=== PATIENT | male | born 1950 | race Caucasian/White ===

== ENCOUNTER 2020-02-16 04:41 | Inpatient (IN) | payer OTHER ==
[~2020-02-16] VITALS: Ht 170.2 cm; Wt 105.5 kg
[~2020-02-16 04:41] MED LIST: ACETAMINOPHEN325 M1 PO; ASPIR 8181 MG PO; ASPIRIN EC325 M1 PO; BYSTOLIC 5 MG5 M1; CARVEDILOL25 MG; CELEXA20 MG; CINNAMON PLUS1 EACH PO; COLACE 100 MG100 MG PO; COZAAR100 MG PO; DAILY MULTIPLE1 EACH PO; GABAPENTIN100 MG PO; GLIPIZIDE XL5 MG PO; GLUCOPHAGE1000 MG PO; LIPITOR40 MG PO; NORVASC10 MG; OMEPRAZOLE20 M2; ROBAXIN 750 MG750 M1 PO; SLEEP AID25 MG PO; TRAMADOL 50 MG50 MG PO
[2020-02-16 04:43] VITALS: BP 192/91
[2020-02-16] MEDS ORDERED: CARVEDILOL12.5 MG PO (05:01)
[2020-02-16] MEDS ORDERED: GABAPENTIN800 M1 PO (05:02)
[2020-02-16] MEDS ORDERED: LEXAPRO20 MG PO (05:02)
[2020-02-16] MEDS ORDERED: VICTOZA0.6 MG/0.1 INJECTION (05:03)
[2020-02-16] MEDS ORDERED: B12 ACTIVE1000 MCG PO (05:03)
[2020-02-16] MEDS ORDERED: PROTONIX 20 MG20 MG PO (05:03)
[2020-02-16 05:23] LABS: HEMATOCRIT 39.8 % (42.0-52.0); HEMOGLOBIN 13.3 gm/dL (14.0-18.0); MCH 29.1 pg (26.0-34.0); MCHC 33.4 g/dL (28.0-37.0); MCV 87.2 fL (80.0-100.0); MPV 8.4 fl. (7.2-11.1); NUCLEATED RBCS 0 /100WBC; PLATELET COUNT* 240 thou/uL (150-400); RBC 4.56 mil/uL (4.50-6.00); WBC 13.1 thou/uL (4.0-11.0)
[2020-02-16 05:41] LABS: APTT 24.7 Seconds (25.0-31.3); INR 1.1; PROTIME 11.4 Seconds (9.20-11.50)
[2020-02-16 05:42] LABS: CALCIUM 8.8 mg/dL (8.5-10.1); CREATININE 1.5 mg/dL (0.6-1.3); POTASSIUM 4.9 mmol/L (3.5-5.1)
[2020-02-16 05:47] LABS: ALBUMIN 3.8 g/dL (3.4-5.0); MAGNESIUM 1.4 mg/dL (1.8-2.4); TOTAL BILIRUBIN 0.6 mg/dL (<0.1-1.0); TOTAL PROTEIN 8.2 g/dL (6.4-8.2)
--- NOTE | 2020-02-16 06:00 | NUR ---
PRE HOSPITAL NITROGLYERIN PATCH REMOVED PER DR MATTHEWS "O"
[2020-02-16 06:04] LABS: BE 0.2 mmol/L (-2 to +3); PCO2 38.6 mmHg (35.0-45.0); PO2 77.3 mmHg (75.0-100.0)
[2020-02-16 06:10] LABS: ABSOLUTE LYMPHOCYTES 0.5 thou/uL (0.8-5.3); ABSOLUTE MONOCYTES 0.7 thou/uL (0.0-1.2); ABSOLUTE NEUTROPHILS 11.9 thou/uL (1.6-8.1); ANISOCYTOSIS 1+; PLATELET ESTIMATE ADEQUATE; POIKILOCYTOSIS 1+
[2020-02-16 09:39] VITALS: BP 136/52; BP 149/83
[2020-02-16] MEDS ORDERED: FLOMAX0.4 MG PO (10:37)
--- NOTE | 2020-02-16 11:04 | NUR ---
RECEIVIED REPORT FROM MICHAEL SOTELO IN ER OF EXPETED ADMISSION AT 0845- DX: RESPIRATORY FAILURE; PLEAURAL EFF; PULMONARY INFILTRATES- PT ARRIVED TO ROOM 221 VIA CART AT 0922, ASSIST X3 VIA SLIDE TO BED- FINISHING MACHINE OPERATOR AUTOMATIC PLACED ORDERED, TRACING SR- VS- 99.1 18 149/83 75 100% ON 4L VIA NC- PT A&O X4, FORGETFULL- CONT VS INCONT OF BOWEL AND BLADDER- DIMINISHED LUNG SOUNDS NOTED, RESP EVEN AND UN-LABORED- ABD SOFT/OBESE/NON-TENDER, BS X4 QUADS- PT REPORTS LAST BM 02/15/20- IV NOTED TO LEFT FA INTACT, IVF INFUSSING PRESCRIBED- RIGHT PANNUS FOLD NOTED WITH SMALL RED RASH AND RIGHT ELBOW WITH REDENED RASH/BRUISE- TRACE EDEMA NOTED TO BLE- Q [address] INDICATED- STAT COVID TEST NOTED TO BE NEGATIVE; PT REMAINS IN INHANCED ISOLATION INDICATED WITH PENDING 2ND COVID TEST- PT DENIES ANY C/O PAIN/DISCOMFORT AT THIS TIME- CALL LIGHT AND PERSONAL BELONGINGS WITH IN REACH- BED ALARM IN PLACE AND WORKING FOR PT SAFETY- HOURLY ROUNDS IN PLACE R/T SAFETY/NEEDS- ALL NEEDS MET AT THIS TIME-TM
[2020-02-16 12:41] VITALS: BP 132/60
--- NOTE | 2020-02-16 15:08 | EKG ---
[place] [address] ELECTROCARDIOGRAM REPORT Name: JACQUELIN HERNANDEZ Room: [address] IN .R.#: [id number] Admission: 02/16/20 Attend Phys: Gerson Gabriel, Discharge: Date of : 52 Date of Service: 02/16/20 0451 Report #: [id number] THIS REPORT FOR: //name// [facility] ED Test Date: 2020-02-16 Test Time: 04:51:52 Pat Name: JACQUELIN HERNANDEZ Department: Room: [facility] Gender: M Cad Design Engineer: CONCEPCIÓN : 1950 Requested By: Lilia Esparza Order Number: [id number] MD: Cesar Loya Measurements Intervals [place] Rate: 97 P: 32 RI: 49 QRS: -23 QRSD: 82 T: 127 QT: 321 QTc: 408 Interpretive Statements Sinus rhythm Atrial premature complex First-degree AV block Inferior infarct, old possible No previous ECG available for comparison Electronically Signed On 02-16-2020 15:08:31 CDT by Cesar Loya [email or web address] <ELECTRONICALLY SIGNED> By: Cesar Loya MD, [facility] 02/16/20 1508 0451 0451 Cesar Loya MD, [facility] /EPI
--- NOTE | 2020-02-16 16:38 | NUR ---
ACACIA was informed that pt would need to transfer to [place] (according to [facility]) once pt was stable to transfer. ACACIA spoke with pt who was in agreement with this plan. ACACIA informed Dr Gabriel and spoke with pt nurse Lawanda. ACACIA faxed requested records to [place] transfer team and they are to call unit number if pt accepted for transfer. [facility] # [phone] fax [phone]
[2020-02-16 20:19] VITALS: BP 150/60
--- NOTE | 2020-02-16 21:41 | CON ---
[address] [address] CONSULTATION Name: JACQUELIN HERNANDEZ Room: [address] IN M.R.#: [id number] Admission: 02/16/20 Attend Phys: Gerson Gabriel MD Discharge: Date of : 52 Report #: [id number] THIS REPORT FOR: //name// cc: YULISSA Goddard family physician/PCP YULISSA Goddard family physician/PCP ~ THIS REPORT FOR: //name// CC: Gerson DUENAS physician/PCP DATE OF SERVICE: 02/16/2020 CONSULT REQUESTED BY: Gerson Gabriel MD INDICATION FOR CONSULTATION: Mass-like infiltrate. HISTORY OF PRESENT ILLNESS: The patient is a 69-year-old gentleman. He has a remote history of smoking, discontinued smoking in the 1970s. He has previously had what he describes as pneumonia with a pleural effusion. He says he had thoracentesis performed in the past. He is not certain which side, thinks most likely it is the left side. The patient does have a history of coronary artery disease with a CABG as well and has a history of dysphagia. At this time, the patient says that he came to the hospital because he was having increase in shortness of breath for the last several days. He was particularly short of breath on the day of admission, which is overnight. He has had a cough. There is not much sputum production. The patient is denying any chest pain; however, according to the records, he has had chest pain with respiration and coughing reported earlier, for which Cardiology service has also been consulted. He does not have increase in swelling of lower extremities. There is no calf pain. The patient does have a low-grade fever at 37.3. The patient initially did require a BiPAP. He has now been titrated down to 4 liters oxygen via nasal cannula. He says that he does not use oxygen or CPAP at home. He has had some sleep complaints, which are longstanding. REVIEW OF SYSTEMS: I asked him 12 questions for review of systems: The patient answers in the negative except as mentioned above. PAST MEDICAL HISTORY: Pneumonia with pleural effusion, for which thoracentesis was performed. It appears likely to me that this is on the left side. However, the patient does not recall. Coronary artery disease, status post coronary artery bypass graft. I do not have a measure of his left ventricular ejection fraction available. Stroke with right sided weakness, Hydrocephalus with a CHIEF KNOWLEDGE OFFICER shunt, bilateral knee surgery, right shoulder surgery, dysphagia, diabetes. His baseline creatinine [place] [address] CONSULTATION Name: JACQUELIN HERNANDEZ Osbaldo Room: [address] IN [facility].#: [id number] Admission: 02/16/20 Attend Phys: Gerson Gabriel MD Discharge: Date of : 52 Report #: [id number] SOCIAL HISTORY: He says he was a smoker when he was younger and discontinued in the 1970s. No known history of heavy alcohol use or illegal drug use. CURRENT MEDICATIONS: List in [facility] reviewed. HOME MEDICATIONS: Also in [facility], reviewed. Noted the patient does take Lexapro at home. ALLERGIES: PENICILLIN, PINEAPPLE AND CHEESE. Details of his reaction to PENICILLIN are Not known to me. FAMILY HISTORY: There is no pertinent family history. PHYSICAL EXAMINATION: GENERAL: Alert, awake and oriented; however, is providing only a limited history. VITAL SIGNS: Blood pressure 132/60. He is saturating in the high 90s and is on 4 liters oxygen via nasal cannula, respiratory rate is mildly elevated to 21, heart rate is 88. He has a low-grade temperature at 37.3. HEENT: Head is normocephalic. NECK: Does not show raised JVP. CHEST: Breath sounds bilaterally equal diminished. No added sounds. HEART: Regular, no murmur. ABDOMEN: Soft and nontender. EXTREMITIES: Lower extremities show trace edema. There is no calf tenderness. SKIN: Dry and intact. NEUROLOGICAL: Moves all extremities bilaterally equally and spontaneously with no focal deficit identified. LABORATORY DATA: The patient's CTA chest is reviewed. In summary, there is no pulmonary emboli. There is a large area of infiltrate, which has a mass-like infiltrate on the right side. There is pleural thickening or loculated pleural effusion on the left side, more likely it is pleural thickening. There is no definite increase in pulmonary vascular congestion. The patient's lab work including a CBC as well as chemistries are in [facility]. These are reviewed. The patient's creatinine is noted to be 1.5. I do not have a previous creatinine available for comparison. His magnesium is 1.4. The patient's arterial blood gas shows a normal pCO2 of 38.6. His COVID-19 antigen is negative, but the PCR is pending. His D-dimer was elevated at 1.12. ASSESSMENT AND PLAN: 1. Acute respiratory insufficiency/shortness of breath. The patient has a large area of infiltrate in the right lung. Therefore, it appears that he has pneumonia. This is the likely etiology of his acute respiratory insufficiency. 2. Mass-like large right-sided pulmonary infiltrates/[place] [address] CONSULTATION Name: JACQUELIN HERNNADEZ Room: [address]#: [id number] Admission: 02/16/20 Attend Phys: Gerson Gabriel MD Discharge: Date of : 52 Report #: [id number] Levaquin. For now, I broadened antibiotic coverage by adding linezolid considering elevation in creatinine and the fact that we do not know his previous creatinine. I would like to avoid use of vancomycin if possible. Note that the patient takes a serotonin specific reuptake inhibitor at home. Recommend not restarting it until the patient is off Zyvox. More cultures and serologies are ordered. Certainly an underlying malignancy will be possible; however, at this time, it appears more likely that we are dealing with an infection. This does need to be followed radiologically. I will plan to follow with chest x-rays will also plan to do a repeat CT chest in the next month. Evaluation for a malignancy may be indicated in case this fails to resolve with the use of antibiotics. I will also go ahead and give him one dose of Solu-Medrol. We will reassess tomorrow as to whether additional steroids are indicated. Overall, COVID-19 appears unlikely; however, I agree with keeping him in isolation until the PCR is back. If it is back and negative, then I will start him on nebulized bronchodilators. Meanwhile, started on an albuterol inhaler. 3. Left sided Pleural Scarring / Possible Left Loculated Pleural Effusion There are likely old/chronic findings 4. Past medical history of stroke with right-sided weakness. Does have a history of dysphagia. We will consult speech, aspiration precautions 5. Hypersomnia. Noct pulse ox / sleep study later 6. Renal insufficiency. Acute vs chronic, follow creatinine, received IV dye 7. Deep venous thrombosis prophylaxis. He is already on Lovenox. Thanks for this consultation. <ELECTRONICALLY SIGNED> By: Aamir Mclaughlin MD 02/16/20 2141 1840 2019Aamir Mclaughlin MD /nt
[2020-02-17] VITALS: BP 117/50
[2020-02-17 04:00] VITALS: BP 137/82
[2020-02-17 05:07] LABS: ABSOLUTE LYMPHOCYTES 0.4 thou/uL (0.8-5.3); ABSOLUTE MONOCYTES 0.1 thou/uL (0.0-1.2); ABSOLUTE NEUTROPHILS 8.7 thou/uL (1.6-8.1); BASOPHILS 0.2 %; EOSINOPHILS 0.3 %; HEMATOCRIT 35.3 % (42.0-52.0); LYMPHOCYTES 4.2 %; MCH 29.3 pg (26.0-34.0); MCV 86.2 fL (80.0-100.0); MONOCYTES 1.6 %; MPV 8.4 fl. (7.2-11.1); NUCLEATED RBCS 0 /100WBC; PLATELET COUNT* 197 thou/uL (150-400); POLYS 93.7 %; RBC 4.09 mil/uL (4.50-6.00); WBC 9.3 thou/uL (4.0-11.0)
--- NOTE | 2020-02-17 05:09 | NUR ---
PT IS ABLE TO COMMUNICATE HIS NEEDS TO STAFF WITH MINOR DIFFICULTIES; HE SOMETIMES REQUIRES EXTRA TIME TO ANSWER. HE HAS DENIED THE NEED FOR PAIN MEDICATION UP TO THIS TIME. RIGHT SIDED HEMIPARESIS; UP WITH WC AT HOME. [facility]. ENHANCED PRECAUTIONS MAINTAINED FOR PENDING COVID19 TESTING.
[2020-02-17 05:21] LABS: ALBUMIN 3.3 g/dL (3.4-5.0); CALCIUM 8.7 mg/dL (8.5-10.1); CREATININE 1.5 mg/dL (0.6-1.3); POTASSIUM 4.8 mmol/L (3.5-5.1); TOTAL BILIRUBIN 0.6 mg/dL (<0.1-1.0); TOTAL PROTEIN 7.5 g/dL (6.4-8.2)
[2020-02-17 08:00] VITALS: BP 171/91
--- NOTE | 2020-02-17 11:48 | NUR ---
SW called and spoke with transfer team at [facility], they are willing to accept pt, they want the transfer form/consent to transfer EMTALA form faxed prior to transfer, SW informed pt nurse [place] to have pt sign and then SW to fax and follow up [facility] with [facility] to ensure [facility] aware PCR pending and finalize transfer time. [facility] ph [phone] option 0, ask for transfer team fax [phone]
[2020-02-17] MEDS ORDERED: LINEZOLID600 MG PO (12:46)
[2020-02-17 12:47] VITALS: BP 145/60
[2020-02-17 15:44] VITALS: BP 145/60
--- NOTE | 2020-02-17 18:32 | NUR ---
PT. VSS, AOX4, DENIES PAIN, COVID ISOLATION PRECAUTIONS IN PLACE. [facility]. REPORT CALLED TO MICHAEL RODRIGUEZ AT [facility]. PT TRANSPORTED BY STRETCHER TO AMBULANCE, DISCHARGE SUMMARY SENT IN PACKET. PT IN NO APPARENT DISTRESS, IN STABLE CONDITION.
--- NOTE | 2020-03-20 14:02 | 2DMMODE ---
[place] [address] 2 D/M-MODE ECHOCARDIOGRAM Name: JACQUELIN HERNANDEZ Room: [address] IN [facility]#: [id number] Admission: 02/16/20 Attend Phys: Gerson Gabriel, Discharge: 02/17/20 Date of : 52 Date of Service: 02/17/20 1315 Report #: [id number] THIS REPORT FOR: cc: FAM - No family physician/PCP FAM - No family physician/PCP Edwin Spivey MD [facility] ~ APPROVED REPORT Study performed: 02/17/2020 10:10:39 EXAM: Comprehensive 2D, Doppler, and color-flow Echocardiogram Patient Location: In-Patient Room #: [facility] Status: routine BSA: 2.09 HR: 67 bpm BP: 141/66 mmHg Rhythm: NSR Other Information Study Quality: Good Indications Elevated Troponin 2D Dimensions IVSd: 16.19 (7-11mm) LVOT Diam: 20.05 (18-24mm) LVDd: 39.96 mm PWd: 11.18 (7-11mm) Ascending Ao: 34.99 (22-36mm) LVDs: 25.09 (25-40mm) Aortic Root: 35.05 mm Volumes Left Atrial Volume (Systole) LA ESV Index: 30.40 mL/m2 Aortic Valve AoV Peak Jorden.: 1.52 m/s AO Peak Gr.: 9.19 mmHg LVOT Max P.89 mmHg AO Mean Gr.: 4.71 mmHg LVOT Mean P.22 mmHg LVOT Max V: 0.85 m/s AO V2 VTI: 28.92 cm LVOT Mean V: 0.50 m/s LIZA (VTI): 1.89 cm2 LVOT V1 VTI: 17.28 [place] [address] 2 D/M-MODE ECHOCARDIOGRAM Name: JACQUELIN HERNANDEZ Room: [address]#: [id number] Admission: 02/16/20 Attend Phys: Gerson Gabriel, Discharge: 02/17/20 Date of : 52 Date of Service: 02/17/20 1315 Report #: [id number] Mitral Valve E/A Ratio: 1.79 MV Decel. Time: 181.57 ms MV E Max Jorden.: 1.34 m/s MV PHT: 52.66 ms MVA (PHT): 4.18 cm2 TDI E/Lateral E': 16.75 E/Medial E': 16.75 Medial E' Jorden.: 0.08 m/s Lateral E' Jorden.: 0.08 m/s Pulmonary Valve PV Peak Jorden.: 0.81 m/s PV Peak Gr.: 2.62 mmHg Tricuspid Valve RAP Estimate: 5.00 mmHg TR Peak Gr.: 33.47 mmHg RVSP: 38.00 mmHg PA Pressure: 38.00 mmHg Left Ventricle The left ventricle is normal size. There is normal LV segmental wall motion. Mild concentric left ventricular hypertrophy. Left ventricular systolic function is normal. LVEF is 55-60%. Transmitral Doppler flow pattern suggests restrictive physiology. Right Ventricle The right ventricle is normal size. The right ventricular systolic function is normal. Atria The left atrium size is normal. The right atrium size is normal. Aortic Valve Mild aortic valve sclerosis. No aortic regurgitation is present. There is no aortic valvular stenosis. Mitral Valve The mitral valve is normal in structure. Trace mitral regurgitation. No evidence of mitral valve stenosis. Tricuspid Valve The tricuspid valve is normal in structure. Mild tricuspid regurgitation. Mild pulmonary hypertension. The RVSP is 50 [place] [address] 2 D/M-MODE ECHOCARDIOGRAM Name: JACQUELIN HERNANDEZ Room: [address]#: [id number] Admission: 02/16/20 Attend Phys: Gerson Gabriel, Discharge: 02/17/20 Date of : 52 Date of Service: 02/17/20 1315 Report #: [id number] Pulmonic Valve The pulmonary valve is normal in structure. There is no pulmonic valvular regurgitation. Great Vessels The aortic root is normal in size. IVC is normal in size and collapses >50% with inspiration. Pericardium There is no pericardial effusion. <Conclusion> The left ventricle is normal size. Mild concentric left ventricular hypertrophy. Left ventricular systolic function is normal. LVEF is 55-60%. Transmitral Doppler flow pattern suggests restrictive physiology. Mild aortic valve sclerosis. There is no aortic valvular stenosis. Trace mitral regurgitation. Mild tricuspid regurgitation. Mild pulmonary hypertension. The RVSP is 50 mmHg. IVC is normal in size and collapses >50% with inspiration. <ELECTRONICALLY SIGNED> By: Edwin Spivey MD, FACC 02/17/20 1315 Edwin Spivey MD, FACC /INF
== END 2020-02-17 16:44 | disposition short-term general hospital (02) | DRG 871 ==
LOC: M.ERS 04:41 → M.TBA-ER 06:42 → M.2W 06:42
PROVIDERS: Personal Emergency Response Attendant; ADMIT Internal Medicine; ATTEND Internal Medicine
PROC: 5A09357 Assistance with Respiratory Ventilation, Less than 24 Consecutive Hours, Continuous Positive Airway Pressure (ICD-10-PCS; principal; 2020-02-16)
DX: A41.9 Sepsis, unspecified organism (principal); I21.4 Non-ST elevation (NSTEMI) myocardial infarction; J96.01 Acute respiratory failure with hypoxia; J15.6 Pneumonia due to other Gram-negative bacteria; N17.9 Acute kidney failure, unspecified; I69.351 Hemiplegia and hemiparesis following cerebral infarction affecting right dominant side; R91.8 Other nonspecific abnormal finding of lung field; I25.10 Atherosclerotic heart disease of native coronary artery without angina pectoris; E11.9 Type 2 diabetes mellitus without complications; I10 Essential (primary) hypertension; Z95.1 Presence of aortocoronary bypass graft; Z88.0 Allergy status to penicillin; Z91.018 Allergy to other foods; Z87.891 Personal history of nicotine dependence; Z79.82 Long term (current) use of aspirin; Z79.899 Other long term (current) drug therapy; Z79.84 Long term (current) use of oral hypoglycemic drugs; Z20.818 Contact with and (suspected) exposure to other bacterial communicable diseases

== ENCOUNTER 2020-08-15 10:41 | Emergency (ER) | payer OTHER ==
[~2020-08-15] VITALS: Ht 175.3 cm; Wt 107.5 kg
[~2020-08-15 10:41] MED LIST changes: +B12 ACTIVE1000 MCG PO; +CARVEDILOL12.5 MG PO; +FLOMAX0.4 MG PO; +GABAPENTIN800 M1 PO; +LEXAPRO20 MG PO; +LINEZOLID600 MG PO; +PROTONIX 20 MG20 MG PO; +VICTOZA0.6 MG/0.1 INJECTION
[2020-08-15 10:48] VITALS: BP 159/67
[2020-08-15 11:05] LABS: BE 0.1 mmol/L (-2 to +3); PCO2 45.6 mmHg (35.0-45.0); PO2 93.3 mmHg (75.0-100.0); pH 7.369 (7.340-7.450)
[2020-08-15 11:10] LABS: ABSOLUTE BASOPHILS 0.1 thou/uL (0.0-0.2); ABSOLUTE EOSINOPHILS 0.3 thou/uL (0.0-0.7); ABSOLUTE LYMPHOCYTES 0.6 thou/uL (0.8-5.3); ABSOLUTE MONOCYTES 0.7 thou/uL (0.0-1.2); ABSOLUTE NEUTROPHILS 6.6 thou/uL (1.6-8.1); BASOPHILS 0.7 %; EOSINOPHILS 3.2 %; HEMATOCRIT 35.3 % (42.0-52.0); HEMOGLOBIN 11.5 gm/dL (14.0-18.0); LYMPHOCYTES 6.8 %; MCH 27.8 pg (26.0-34.0); MCHC 32.6 g/dL (28.0-37.0); MCV 85.2 fL (80.0-100.0); MONOCYTES 8.1 %; MPV 8.1 fl. (7.2-11.1); NUCLEATED RBCS 0 /100WBC; PLATELET COUNT* 250 thou/uL (150-400); POLYS 81.2 %; RBC 4.14 mil/uL (4.50-6.00); WBC 8.1 thou/uL (4.0-11.0)
[2020-08-15 11:21] LABS: APTT 27.8 Seconds (25.0-31.3); CALCIUM 8.8 mg/dL (8.5-10.1); CREATININE 1.3 mg/dL (0.6-1.3); INR 1.1; POTASSIUM 4.3 mmol/L (3.5-5.1)
[2020-08-15 11:32] LABS: ALBUMIN 3.5 g/dL (3.4-5.0); TOTAL BILIRUBIN 0.8 mg/dL (<0.1-1.0); TOTAL PROTEIN 7.7 g/dL (6.4-8.2)
--- NOTE | 2020-08-15 12:24 | NUR ---
[facility] CON[facility]CT[facility] RECORDS FOR TRANSFER PER TRANSFER NURSE LINE
[2020-08-15 13:06] LABS: URINE BILIRUBIN NEGATIVE (Negative); URINE BLOOD NEGATIVE (Negative); URINE CLARITY CLEAR; URINE COLOR YELLOW; URINE GLUCOSE-RANDOM NEGATIVE (Negative); URINE KETONES NEGATIVE (Negative); URINE LEUKOCYTES-REFLEX NEGATIVE (Negative); URINE NITRITE-REFLEX NEGATIVE (Negative); URINE PROTEIN NEGATIVE (Negative); URINE UROBILINOGEN 0.2 E.U./dl (0.2-1.0)
--- NOTE | 2020-08-15 14:25 | EKG ---
[place] [address] ELECTROCARDIOGRAM REPORT Name: JACQUELIN HERNANDEZ Room: [facility]#: [id number] Admission: 08/15/20 Attend Phys: Discharge: Date of : 52 Date of Service: 08/15/20 1123 Report #: [id number] THIS REPORT FOR: //name// [facility] ED Test Date: 2020-08-15 Test Time: 11:23:47 Pat Name: JACQUELIN HERNANDEZ Department: Room: [facility] Gender: Bulk Picker: [place] : 1950 Requested By: Jose Luis Dang Order Number: [id number] MD: Javad Snider Measurements Intervals [place] Rate: 64 P: AL: QRS: -17 QRSD: 86 T: 93 QT: 433 QTc: 447 Interpretive Statements sinus rhythm with first degree av block Abnormal R-wave progression, early transition Inferior infarct, old Baseline wander in lead(s) V3 Compared to ECG 02/16/2020 04:51:52 rate has slowed Electronically Signed On 08-15-2020 14:25:00 HEARTH FEEDER by Javad Snider [email or web address] <ELECTRONICALLY SIGNED> By: Javad Snider MD, [facility] 08/15/20 1425 1123 1123 Javad Snider MD, [facility] /EPI
[2020-08-15 14:37] VITALS: BP 139/76
== END 2020-08-15 14:38 | disposition short-term general hospital (02) ==
LOC: M.ERS 10:41 → M.TBA-ER 12:16 → M.ERS 14:38
PROVIDERS: Family Medicine
DX: J96.90 Respiratory failure, unspecified, unspecified whether with hypoxia or hypercapnia (principal); J18.9 Pneumonia, unspecified organism; I50.9 Heart failure, unspecified; E11.9 Type 2 diabetes mellitus without complications; Z95.1 Presence of aortocoronary bypass graft; Z79.899 Other long term (current) drug therapy; Z79.82 Long term (current) use of aspirin; Z88.0 Allergy status to penicillin; Z91.018 Allergy to other foods; Z20.828 Contact with and (suspected) exposure to other viral communicable diseases

== ENCOUNTER 2021-01-27 11:37 | Inpatient (IN) | payer OTHER ==
[~2021-01-27] VITALS: Ht 177.8 cm; Wt 98.4 kg
[2021-01-27 11:38] VITALS: BP 94/46
[2021-01-27] MEDS ORDERED: FUROSEMIDE 40 M40 MG PO (11:48)
[2021-01-27 12:01] LABS: HEMATOCRIT 31.5 % (42.0-52.0); HEMOGLOBIN 10.9 gm/dL (14.0-18.0); MCH 30.7 pg (26.0-34.0); MCHC 34.6 g/dL (28.0-37.0); MCV 88.6 fL (80.0-100.0); MPV 7.6 fl. (7.2-11.1); NUCLEATED RBCS 0 /100WBC; PLATELET COUNT* 252 thou/uL (150-400); RBC 3.56 mil/uL (4.50-6.00); RDW-CV 13.3 % (10.5-14.5); WBC 13.1 thou/uL (4.0-11.0)
[2021-01-27 12:11] LABS: CALCIUM 8.1 mg/dL (8.5-10.1); CREATININE 2.1 mg/dL (0.6-1.3); POTASSIUM 4.6 mmol/L (3.5-5.1)
[2021-01-27 12:23] LABS: ALBUMIN 3.1 g/dL (3.4-5.0); TOTAL BILIRUBIN 1.2 mg/dL (<0.1-1.0); TOTAL PROTEIN 7.1 g/dL (6.4-8.2)
[2021-01-27 12:29] LABS: ABSOLUTE EOSINOPHILS 0.3 thou/uL (0.0-0.7); ABSOLUTE LYMPHOCYTES 0.1 thou/uL (0.8-5.3); ABSOLUTE NEUTROPHILS 11.7 thou/uL (1.6-8.1); PLATELET ESTIMATE ADEQUATE
[2021-01-27 14:41] LABS: URINE BILIRUBIN NEGATIVE (Negative); URINE BLOOD NEGATIVE (Negative); URINE CLARITY CLEAR; URINE COLOR YELLOW; URINE GLUCOSE-RANDOM NEGATIVE (Negative); URINE KETONES NEGATIVE (Negative); URINE LEUKOCYTES-REFLEX NEGATIVE (Negative); URINE NITRITE-REFLEX NEGATIVE (Negative); URINE PROTEIN NEGATIVE (Negative)
[2021-01-27 15:21] VITALS: BP 102/52
--- NOTE | 2021-01-27 19:50 | NUR ---
PT WAS ADMITTED TODAY FOR AK. PT HAS OLD STROKE SYMPTOMS THAT HE IS FLAccid on his right SIDE. VSS AFEBRILE. PT HAS A VERY GOOD MEMORY. PT INCONTINENT OF URINE. WILL NEED TO MONITOR HIS WETNESS SO HE DOES NOT GET SKIN BREAK DOWN. PT HAS SALINE LOCK IN HIS LEFT FOREARM OLEG NORMAL SALINE AT 100CC/HR. WILL CONTINUE TO MONITOR PLAN OF CARE.
[2021-01-27 22:00] VITALS: BP 137/65
--- NOTE | 2021-01-27 23:59 | NUR ---
PT STARTED SHIFT WITH TELE NSR AT APPROX 2200 PT MONITOR WAS SHOWING AFIB SO I PRINTED STRIP, IT APPEARS MORE SINUS ARRYTHMIA THAN AFIB. I CONFERRED WITH ROBERT MELÉNDEZ RN AND SHE AGREED. WCTM
[2021-01-28] VITALS: BP 137/69
[2021-01-28 04:09] VITALS: BP 144/61
--- NOTE | 2021-01-28 05:25 | NUR ---
PT AO X4 LYING IN BED AT TIME OF ASSESMENT. IVF RUNNING AT 100/HR PER ORDER. PT HAS RT SIDE HEMIPARESIS FROM PREVIOUS STROKE. PULSES DIMINISHED ON RT SIDE. PT DENIES PAIN AND SOA, HE WAS NSR AT BEGINING OF SHIFT AND LATER WAS READING AFIB ON MONITOR BUT REVIEW OF STRIP SHOWED SINUS ARRYTHMIA. PT HAS HAD LITTLE URINE OUTPUT THIS SHIFT. DARK YELLOW IN COLOR. VSS. CALL LIGHT WITHIN REACH AND BED LIGHT ON FOR SAFETY
--- NOTE | 2021-01-28 07:15 | NUR ---
CHANGE OF SHIFT BEDSIDE REPORT GIVEN PATIENT SEEN AT BEDSIDE, IN BED ASLEEP ASSUMED PATIENT CARE
[2021-01-28 08:00] VITALS: BP 169/72
[2021-01-28 10:27] LABS: CHOLESTEROL 86 mg/dL (<200); HDL CHOLESTEROL 27 mg/dL (>40); LDL CHOLESTEROL 30 mg/dL (<100); SERUM ASSESSMENT Clear; TC:HDL 3.2 Ratio (Not establshd); TRIGLYCERIDE 147 mg/dL (<150); VLDL 29 mg/dL (<40)
--- NOTE | 2021-01-28 11:29 | EKG ---
[place] [address] ELECTROCARDIOGRAM REPORT Name: JACQUELIN HERNANDEZ Room: [address] ADM IN .R.#: [id number] Admission: 01/27/21 Attend Phys: Sky [place] Discharge: Date of : 52 Date of Service: 01/27/21 1149 Report #: [id number] THIS REPORT FOR: //name// [facility] ED Test Date: 2021-01-27 Test Time: 11:49:30 Pat Name: JACQUELIN HERNANDEZ Department: Room: [facility] Gender: M Brass Bobbin Winder: : 1950 Requested By: Nathanael Heath Order Number: [id number] MD: Javad Snider Measurements Intervals [place] Rate: 79 P: -59 IA: 217 QRS: -16 QRSD: 93 T: 64 QT: 379 QTc: 435 Interpretive Statements Sinus rhythm nonspecific st segment changes Borderline left axis deviation RSR' in V1 or V2, right VCD or RVH Compared to ECG 08/15/2020 11:23:47 First degree AV block no longer present Electronically Signed On 01-28-2021 11:28:56 CDT by Javad Snider [email or web address] <ELECTRONICALLY SIGNED> By: Javad Snider MD, FAC 01/28/21 1128 1149 1149 Javad Snider MD, [facility] /EPI
[2021-01-28 13:01] VITALS: BP 153/70
[2021-01-28 15:43] VITALS: BP 154/78
--- NOTE | 2021-01-28 16:00 | NUR ---
notified by PT that patients L foot 5th toe nail has come off during pivot transfer toe assessed, L foot 5th toe without toe nail, small amount of blood, area cleaned with saline, left CAKE STRIPPER patient denies pain will continue to monitor
[2021-01-28 20:00] VITALS: BP 160/78
[2021-01-29] VITALS: BP 122/68
[2021-01-29 03:57] LABS: ALBUMIN 2.8 g/dL (3.4-5.0); CALCIUM 8.3 mg/dL (8.5-10.1); CREATININE 1.3 mg/dL (0.6-1.3); POTASSIUM 3.8 mmol/L (3.5-5.1); TOTAL BILIRUBIN 0.7 mg/dL (<0.1-1.0); TOTAL PROTEIN 6.7 g/dL (6.4-8.2)
[2021-01-29 04:00] VITALS: BP 100/57
[2021-01-29 04:05] LABS: GLYCOHEMOGLOBIN (HGB A1C) 6.4 % (4.8-5.6)
--- NOTE | 2021-01-29 05:47 | NUR ---
PATENT SLEPT WELL DURING THIS SHIFT. PT WITH HS BLOOD SUGAR OF 155; NO SSI ORDERED. PT IS ON ROOM AIR. PT DENIES PAIN/NAUSEA. PT IS SR ON FURNACE HAND. PT WITH FLUIDS INFUSING PER DR ORDER. PT WITH LIMITED USE OF RT SIDE DUE TO PREVIOUS CVA. FREQUENTLY USED ITEMS AND CALL LIGHT WITHIN REACH. SIDERAILS UPX2 AND BED ALARM ON. WILL CONTINUE TO MONITOR.
[2021-01-29 08:05] VITALS: BP 151/82
[2021-01-29] MEDS ORDERED: CEFDINIR300 MG PO (09:09)
[2021-01-29 12:00] VITALS: BP 138/71
[2021-01-29 13:29] VITALS: BP 138/71
--- NOTE | 2021-01-29 13:56 | NUR ---
WOUND NURSE: PATIENT ASSESSED REGARDING TOENAIL CAME OFF OF 5TH DIGIT OF LEFT FOOT. EXPECT THE NAIL WAS ALREADY LOOSE NAIL BED WAS PINK AND INTACT WHILE THE CUTICLE HAD A SCANT AMOUNT OF DRIED BLOOD ALONG THE EDGES. THERE IS NO ACTIVE DRAINAGE. SWABBED WITH BETADINE AND LEFT NOEL TO DRY. NO OTHER INTERVENTION NECESSARY AT THIS TIME.
--- NOTE | 2021-01-29 15:06 | NUR ---
Patient given d/c instructions and new script, verbalized understanding. IV taken out, vehicle monitor technician taken off. is here. He is being taken out by his personal wheelchair with nursing staff to his personal car. All belongings with patient.
--- NOTE | 2021-01-30 13:48 | NUR ---
I have reviewed the documentation by LUIS GORDON from 01/29/21 to 01/30/21 and I concur with it. CARYL DENNY
== END 2021-01-29 15:08 | disposition home or self-care (01) | DRG 177 ==
LOC: M.ERS 11:37 → M.2W 13:06 → M.TBA-ER 13:06 → M.2W 15:21
PROVIDERS: Emergency Medicine Emergency Medical Services; Psychiatry & Neurology Neurology; ADMIT Internal Medicine; ATTEND Internal Medicine
DX: J69.0 Pneumonitis due to inhalation of food and vomit (principal); G93.41 Metabolic encephalopathy; G82.20 Paraplegia, unspecified; E11.9 Type 2 diabetes mellitus without complications; R77.8 Other specified abnormalities of plasma proteins; N19 Unspecified kidney failure; Z20.822 Contact with and (suspected) exposure to COVID-19; Z79.82 Long term (current) use of aspirin; Z95.1 Presence of aortocoronary bypass graft; Z79.84 Long term (current) use of oral hypoglycemic drugs; Z79.899 Other long term (current) drug therapy; Z88.0 Allergy status to penicillin; Z91.018 Allergy to other foods; I69.361 Other paralytic syndrome following cerebral infarction affecting right dominant side; Z87.891 Personal history of nicotine dependence

== ENCOUNTER 2021-06-25 19:26 | Inpatient (IN) | payer OTHER ==
[~2021-06-25] VITALS: Ht 172.7 cm; Wt 90.7 kg
[~2021-06-25 19:26] MED LIST changes: +CEFDINIR300 MG PO; +FUROSEMIDE 40 M40 MG PO
[2021-06-25 19:27] VITALS: BP 158/89
[2021-06-25 19:47] LABS: ABSOLUTE BASOPHILS 0.1 thou/uL (0.0-0.2); ABSOLUTE EOSINOPHILS 0.2 thou/uL (0.0-0.7); ABSOLUTE LYMPHOCYTES 0.7 thou/uL (0.8-5.3); BASOPHILS 0.7 %; EOSINOPHILS 1.5 %; HEMATOCRIT 35.6 % (42.0-52.0); HEMOGLOBIN 11.9 gm/dL (14.0-18.0); LYMPHOCYTES 5.7 %; MCH 29.6 pg (26.0-34.0); MCHC 33.3 g/dL (28.0-37.0); MCV 89.1 fL (80.0-100.0); MONOCYTES 7.9 %; MPV 8.1 fl. (7.2-11.1); NUCLEATED RBCS 0 /100WBC; PLATELET COUNT* 221 thou/uL (150-400); POLYS 84.2 %; RDW-CV 14.5 % (10.5-14.5); WBC 13.1 thou/uL (4.0-11.0)
[2021-06-25 19:55] LABS: CALCIUM 8.7 mg/dL (8.5-10.1); POTASSIUM 5.1 mmol/L (3.5-5.1)
[2021-06-25 19:59] LABS: ALBUMIN 3.4 g/dL (3.4-5.0); TOTAL BILIRUBIN 0.8 mg/dL (<0.1-1.0); TOTAL PROTEIN 7.5 g/dL (6.4-8.2)
[2021-06-25 21:06] LABS: URINE BILIRUBIN NEGATIVE (Negative); URINE BLOOD NEGATIVE (Negative); URINE CLARITY CLEAR; URINE COLOR YELLOW; URINE GLUCOSE-RANDOM NEGATIVE (Negative); URINE KETONES NEGATIVE (Negative); URINE LEUKOCYTES NEGATIVE (Negative); URINE NITRITE NEGATIVE (Negative); URINE PROTEIN NEGATIVE (Negative)
[2021-06-26 01:56] VITALS: BP 138/45
[2021-06-26 04:54] VITALS: BP 134/80
--- NOTE | 2021-06-26 09:50 | OP ---
[address] [address] OPERATIVE REPORT Name: JACQUELIN HERNANDEZ Room: [place] [address] ADM IN .R.#: [id number] Admission: 06/25/21 Attend Phys: Mackenzie Bello Discharge: Date of : 52 Report #: [id number] THIS REPORT FOR: cc: [facility] - Clinic physician unknown [facility] - Clinic physician unknown Moose Bradshaw DO ~ DATE OF SURGERY: 06/26/2021 SURGEON: Moose Bradshaw DO [employer] TENDER: Dr. Bong Correa. PREOPERATIVE DIAGNOSIS: Small bowel perforation. POSTOPERATIVE DIAGNOSIS: Small bowel perforation. PROCEDURE PERFORMED: Exploratory laparotomy with small bowel resection and anastomosis. INDICATIONS: The patient is a 70-year-old male who presented to the hospital with complaints of abdominal pain and fever. History of present illness, physical exam, and CT imaging were consistent with a possible small bowel perforation. Risks, benefits and alternatives were discussed with the patient and his . Risks include bleeding, infection and damage to nearby structures. The patient and his voiced complete understanding and elected to proceed with surgery. OPERATIVE DESCRIPTION: The patient was taken to the operating theater and placed in supine position. Bilateral SCDs were placed and preoperative antibiotics had been given. General anesthesia was induced without complication. Timeout was performed and all were in agreement. The abdomen was prepped and draped in the standard sterile fashion. A midline celiotomy incision was made with a 10 blade scalpel. Dissection was carried down to the midline fascia using electrocautery. Midline fascia was scored. A finger was used to enter the peritoneum and the remainder of the fascial incision was opened for the length of the incision over a finger. The small bowel was eviscerated. The omentum was adhered to a previous appendectomy scar, this was taken down from the abdominal wall using a LigaSure device. The small bowel was run from the ligament of Treitz to the terminal ileum. There was a small area in the jejunum that appeared to have perforated and sealed. The bowel wall was thickened and the mesentery indurated. There were several enlarged lymph nodes and some purulent ascites surrounding. The remainder of the bowel appeared relatively healthy. . There were some mesenteric petechial [place] [address] OPERATIVE REPORT Name: JACQUELIN HERNANDEZ Room: [address] IN [facility]#: [id number] Admission: 06/25/21 Attend Phys: Mackenzie Bello Discharge: Date of : 52 Report #: [id number] throughout, but no major lymphadenopathy. There was 1 diverticulum just proximal to the perforation site. This would be taken with the specimen. Hemostat was used proximal and distal to the area of perforation to create a mesenteric window and a SEBAS stapler blue load was used to transect the bowel in the proximal and distal location. . A LigaSure device was used to ligate the mesentery. This was sent off as specimen. Next, the 2 ends of the small intestine were lined up. A 3-0 silk interrupted stitches were used to create a back wall of the anastomosis. An enterotomy on the antimesenteric border of each limb was made using electrocautery. A 3-0 PDS suture was used in a running fashion to sew the common channel. Two 3-0 PDS were used, they were tied in the middle, run to the corners where a janell stitch was performed and then tied in the middle. 3-0 silk stitches were used to imbricate the front side of this common channel in a lembert fashion. Next, a mesenteric defect was closed using 2-0 Vicryl in a running fashion. The omentum was placed over the small intestine and the abdomen was irrigated with 3 liters of warm saline. The fascia was then closed using two #1 looped PDS sutures. These were tied in the middle. A 3-0 Vicryl deep dermal stitches were placed in an interrupted fashion and the skin was closed with tami. The wound was dressed with a silver Mepilex dressing. The sponge, needle and instrument counts were correct x 2. COMPLICATIONS: None. FINDINGS: Area of small bowel perforation. SPECIMENS: Small bowel. ESTIMATED BLOOD LOSS: 20 mL. DRAINS: None. DISPOSITION: The patient was extubated successfully in the operating theater and taken to the PACU in stable condition. <ELECTRONICALLY SIGNED> By: Moose Bradshaw DO 06/26/21 0950 [id number] Bradshaw DO /nt
--- NOTE | 2021-06-26 09:56 | EKG ---
[place] [address] ELECTROCARDIOGRAM REPORT Name: JCAQUELIN HERNANDEZ Room: [place] [address] ADM IN [facility]#: [id number] Admission: 06/25/21 Attend Phys: Sky [place] Discharge: Date of : 52 Date of Service: 06/25/211933 Report #: [id number] THIS REPORT FOR: //name// [facility] ED Test Date: 2021-06-25 Test Time: 19:34:35 Pat Name: JACQUELIN HERNANDEZ Department: Room: [facility] Gender: M [employer]: : 1950 Requested By: Moose Arce Order Number: [id number] MD: Cesar Loya Measurements Intervals [place] Rate: 77 P: 0 SD: 56 QRS: -5 QRSD: 94 T: 66 QT: 379 QTc: 429 Interpretive Statements Sinus or junctional rhythm Borderline T wave abnormalities Compared to ECG 01/27/2021 11:49:30 T-wave abnormality now present ST (T wave) deviation now present Right ventricular hypertrophy no longer present Electronically Signed On 06-26-2021 9:56:30 PRESS HAND by Cesar Loya [email or web address] <ELECTRONICALLY SIGNED> By: Cesar Loya MD, FACC 06/26/21 0956 33 33 Cesar Loya MD, FACC /EPI
[2021-06-26 16:00] VITALS: BP 123/55
[2021-06-26 19:35] VITALS: BP 104/51
[2021-06-27 00:17] VITALS: BP 109/48
[2021-06-27 04:00] VITALS: BP 100/51
[2021-06-27 05:37] LABS: ABSOLUTE LYMPHOCYTES 0.4 thou/uL (0.8-5.3); ABSOLUTE MONOCYTES 0.8 thou/uL (0.0-1.2); ABSOLUTE NEUTROPHILS 7.1 thou/uL (1.6-8.1); BASOPHILS 0.1 %; EOSINOPHILS 0.1 %; HEMATOCRIT 26.1 % (42.0-52.0); LYMPHOCYTES 5.3 %; MCH 30.5 pg (26.0-34.0); MCHC 33.5 g/dL (28.0-37.0); MCV 90.9 fL (80.0-100.0); MONOCYTES 9.2 %; MPV 8.5 fl. (7.2-11.1); NUCLEATED RBCS 0 /100WBC; PLATELET COUNT* 156 thou/uL (150-400); POLYS 85.3 %; RBC 2.87 mil/uL (4.50-6.00); RDW-CV 14.4 % (10.5-14.5); WBC 8.4 thou/uL (4.0-11.0)
[2021-06-27 05:42] LABS: HEMOGLOBIN 8.8 gm/dL (14.0-18.0)
[2021-06-27 05:51] LABS: ALBUMIN 2.4 g/dL (3.4-5.0); CALCIUM 7.6 mg/dL (8.5-10.1); CREATININE 1.7 mg/dL (0.6-1.3); POTASSIUM 4.5 mmol/L (3.5-5.1); TOTAL BILIRUBIN 0.5 mg/dL (<0.1-1.0); TOTAL PROTEIN 5.9 g/dL (6.4-8.2)
[2021-06-27 08:09] VITALS: BP 99/48
[2021-06-27 11:55] VITALS: BP 114/63
[2021-06-27 16:32] VITALS: BP 117/73
--- NOTE | 2021-06-27 17:06 | PATH ---
[address] [address] PATHOLOGY RPT PROCEDURE Name: GUILLERMO HERNANDEZ Room: [address] ADM IN M.R.#: [id number] Admission: 06/25/21 Date of : 52 Discharge: Report #: [id number] Path Case #: [id number] [facility] Accession Number: [id number] . 01 Material submitted: . small bowel - SMALL BOWEL . 01 Clinical history: . EXPLORATORY LAPAROTOMY SMALL BOWEL PERFORATION . 02 Diagnosis: Small bowel: - Segment of benign small intestine with evidence of diverticuli and with prominent transmural perforation in region of ulceration, fat necrosis, abscess formation and acute serositis. . (KELSIE:mml; 06/27/2021) [facility] 06/27/2021 [facility]2 Local . 02 Electronically signed: . Marky Verdin MD, Pathologist NPI- [id number] . 01 Gross description: . The specimen is received in formalin, labeled "Guillermo Hernandez, small bowel" and consists of an unoriented segment of small bowel (46.7 cm in length by 2.2 cm to 3.5 cm in diameter) with a moderate amount of attached fat. The serosa is wood-pink to focally white, dusky and hemorrhagic and displays a focal area of fibrinous exudate (6.0 x 0.9 cm). The stapled margins are differentially inked black and blue. The specimen is opened to reveal, underlying the area of fibrinous exudate, pink-red edematous and dusky mucosa (approximately 7.5 x 5.0 cm). Numerous wide-mouth outpouchings (ranging from 1.4 x 0.9 x 0.9 cm to 2.8 x 2.5 x 1.0 cm) are identified. A possible perforation site (0.8 x 0.5 x 0.2 cm) is identified and displays an adjacent abscess cavity (2.5 x 1.4 x 0.7 cm). No additional discrete lesions are identified. Brush Cleaner sections are submitted as follows: A1: Staple margins, submitted en face, represented A2-A4: Possible perforation and abscess cavity, represented A5-A6: Outpouchings, represented A7: White serosa, entirely submitted ([facility]; 06/26/2021) DKA/DKA 06/27/2021 1550 Local . 02 Pathologist provided ICD-10: K63.3, K65.8, K63.[address] . [address] [facility] [address] [place] [address] PATHOLOGY RPT PROCEDURE Name: GUILLERMO HERNANDEZ Osbaldo Room: [address] IN [facility]#: [id number] Admission: 06/25/21 Date of : 52 Discharge: Report #: [id number] Path Case #: [id number] Specimen Comment: A courtesy copy of this report has been sent to [phone] Specimen Comment: [id number] Specimen Comment: Report sent to / DR DODGE Performed at: 01 [facility] [place] [id number] [facility] [place] [address], [place], [place] [id number] MD Antwan Tong MD Phone: [phone] Performed at: 02 [facility] [place] [address], [place], [place] [id number] MD Marky Verdin MD Phone: [phone]
[2021-06-27 19:28] VITALS: BP 126/58
[2021-06-28 01:44] VITALS: BP 136/62
[2021-06-28 04:45] LABS: ABSOLUTE EOSINOPHILS 0.4 thou/uL (0.0-0.7); ABSOLUTE LYMPHOCYTES 0.4 thou/uL (0.8-5.3); ABSOLUTE MONOCYTES 0.7 thou/uL (0.0-1.2); ABSOLUTE NEUTROPHILS 6.4 thou/uL (1.6-8.1); BASOPHILS 0.4 %; HEMATOCRIT 25.3 % (42.0-52.0); HEMOGLOBIN 8.5 gm/dL (14.0-18.0); LYMPHOCYTES 5.6 %; MCH 30.4 pg (26.0-34.0); MCHC 33.7 g/dL (28.0-37.0); MONOCYTES 8.5 %; MPV 8.5 fl. (7.2-11.1); NUCLEATED RBCS 0 /100WBC; PLATELET COUNT* 179 thou/uL (150-400); POLYS 80.5 %; RBC 2.81 mil/uL (4.50-6.00); RDW-CV 14.3 % (10.5-14.5); WBC 7.9 thou/uL (4.0-11.0)
[2021-06-28 05:01] LABS: CALCIUM 8.1 mg/dL (8.5-10.1); CREATININE 1.5 mg/dL (0.6-1.3); MAGNESIUM 1.7 mg/dL (1.8-2.4); PHOSPHORUS* 2.4 mg/dL (2.5-4.9); POTASSIUM 4.2 mmol/L (3.5-5.1)
[2021-06-28 05:52] VITALS: BP 151/74
[2021-06-28 12:00] VITALS: BP 175/70
[2021-06-28 16:00] VITALS: BP 160/71
[2021-06-28 20:00] VITALS: BP 153/81
[2021-06-29 01:50] VITALS: BP 108/60
[2021-06-29 02:06] LABS: GLYCOHEMOGLOBIN (HGB A1C) 6.8 % (4.8-5.6)
[2021-06-29 06:34] VITALS: BP 175/77
[2021-06-29 06:34] LABS: HEMATOCRIT 26.6 % (42.0-52.0); HEMOGLOBIN 8.7 gm/dL (14.0-18.0); MCH 29.9 pg (26.0-34.0); MCHC 32.8 g/dL (28.0-37.0); MCV 91.1 fL (80.0-100.0); MPV 8.1 fl. (7.2-11.1); RBC 2.92 mil/uL (4.50-6.00); WBC 7.3 thou/uL (4.0-11.0)
[2021-06-29 06:47] LABS: ALBUMIN 2.2 g/dL (3.4-5.0); CALCIUM 8.2 mg/dL (8.5-10.1); CREATININE 1.3 mg/dL (0.6-1.3); POTASSIUM 3.9 mmol/L (3.5-5.1); TOTAL BILIRUBIN 0.5 mg/dL (<0.1-1.0); TOTAL PROTEIN 6.3 g/dL (6.4-8.2)
[2021-06-29 12:00] VITALS: BP 163/77
[2021-06-29 16:00] VITALS: BP 103/64
[2021-06-29 20:00] VITALS: BP 138/60
[2021-06-30] VITALS: BP 111/58
[2021-06-30 04:00] VITALS: BP 94/42
[2021-06-30 08:00] VITALS: BP 98/47
[2021-06-30 10:02] LABS: HEMATOCRIT 25.5 % (42.0-52.0); HEMOGLOBIN 8.4 gm/dL (14.0-18.0); MCH 29.9 pg (26.0-34.0); MCV 90.8 fL (80.0-100.0); MPV 8.5 fl. (7.2-11.1); RBC 2.81 mil/uL (4.50-6.00); RDW-CV 13.9 % (10.5-14.5); WBC 7.2 thou/uL (4.0-11.0)
[2021-06-30 10:06] LABS: ALBUMIN 2.2 g/dL (3.4-5.0); CALCIUM 8.3 mg/dL (8.5-10.1); CREATININE 1.4 mg/dL (0.6-1.3); POTASSIUM 3.9 mmol/L (3.5-5.1); TOTAL BILIRUBIN 0.4 mg/dL (<0.1-1.0); TOTAL PROTEIN 5.9 g/dL (6.4-8.2)
[2021-06-30 12:00] VITALS: BP 81/44
[2021-06-30 16:00] VITALS: BP 101/45
[2021-06-30 20:00] VITALS: BP 111/56
[2021-07-01 06:27] LABS: HEMATOCRIT 26.2 % (42.0-52.0); HEMOGLOBIN 8.8 gm/dL (14.0-18.0); MCH 30.1 pg (26.0-34.0); MCHC 33.8 g/dL (28.0-37.0); MCV 89.2 fL (80.0-100.0); MPV 8.3 fl. (7.2-11.1); RBC 2.93 mil/uL (4.50-6.00); RDW-CV 14.1 % (10.5-14.5); WBC 9.2 thou/uL (4.0-11.0)
[2021-07-01 06:35] LABS: CALCIUM 8.1 mg/dL (8.5-10.1); CREATININE 1.3 mg/dL (0.6-1.3); POTASSIUM 3.6 mmol/L (3.5-5.1)
[2021-07-01] MEDS ORDERED: OXYCODONE HCL 55 MG PO (08:52)
[2021-07-01] MEDS ORDERED: SENEXON-S 50-81 EACH PO (08:52)
[2021-07-01 10:00] VITALS: BP 127/55
[2021-07-01 12:57] VITALS: BP 127/55
== END 2021-07-01 16:45 | disposition home or self-care (01) | DRG 853 ==
LOC: M.ERS 19:26 → M.TBA-ER 21:47 → M.2W 06-26 10:39 → M.3W 06-30 18:19
PROVIDERS: Internal Medicine; Physician Assistant; Surgery; ADMIT Internal Medicine; ATTEND Internal Medicine
PROC: 0DJD0ZZ Inspection of Lower Intestinal Tract, Open Approach (ICD-10-PCS; principal; 2021-06-26)
PROC: 0DB80ZZ Excision of Small Intestine, Open Approach (ICD-10-PCS; principal; 2021-06-26)
DX: A41.9 Sepsis, unspecified organism (principal); K63.1 Perforation of intestine (nontraumatic); N17.0 Acute kidney failure with tubular necrosis; G82.20 Paraplegia, unspecified; K56.609 Unspecified intestinal obstruction, unspecified as to partial versus complete obstruction; Z20.822 Contact with and (suspected) exposure to COVID-19; E11.9 Type 2 diabetes mellitus without complications; G83.9 Paralytic syndrome, unspecified; I10 Essential (primary) hypertension; E83.42 Hypomagnesemia; E83.39 Other disorders of phosphorus metabolism; Z74.01 Bed confinement status; Z95.1 Presence of aortocoronary bypass graft; Z88.0 Allergy status to penicillin; Z88.8 Allergy status to other drugs, medicaments and biological substances; Z79.899 Other long term (current) drug therapy; Z79.82 Long term (current) use of aspirin